=== PATIENT | female | born 1950 | race Hispanic/Latino ===

== ENCOUNTER 2018-07-18 06:27 | Outpatient (CLI) | payer OTHER | END 2018-07-18 06:28 | disposition home or self-care (01) | LOC: C.LAB 06:27 | DX: E78.2 Mixed hyperlipidemia (principal); I10 Essential (primary) hypertension; D51.0 Vitamin B12 deficiency anemia due to intrinsic factor deficiency ==

== ENCOUNTER 2018-08-15 06:35 | Outpatient (CLI) | payer OTHER | END 2018-08-15 06:36 | disposition home or self-care (01) | LOC: C.CARD 06:35 | DX: I10 Essential (primary) hypertension (principal); R06.02 Shortness of breath ==

== ENCOUNTER 2018-09-04 07:08 | Emergency (ER) | payer OTHER ==
[2018-09-04 07:08] VITALS: BMI 22.4
[2018-09-04] MEDS ORDERED: Tramadol 25 mg PO ONE (07:54)
--- NOTE | 2018-09-04 08:18 | C.PDOC ---
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 Patient states that she tripped on a cord and fell injuring her elbow. Patient states that she is not able to fully straighten her elbow. Denies having weakness, numbness, and tingling sensation in rest of the left arm. Time Seen by Provider: 09/04/18 07:37 Chief Complaint (Nursing): Upper Extremity Problem/Injury History Per: Patient History/Exam Limitations: no limitations Onset/Duration Of Symptoms: Mins Current Symptoms Are (Timing): Still Present Severity: Moderate Past Medical History Reviewed: Historical Data, Nursing Documentation, Vital Signs Vital Signs: Last Vital Signs Temp 98.2 F 09/04/18 07:25 Pulse 109 H 09/04/18 07:25 Resp 20 09/04/18 07:25 BP 156/82 H 09/04/18 07:25 Pulse Ox 99 09/04/18 07:25 - Medical History PMH: HTN Surgical History: Tonsillectomy - [facility] Procedures NONEXCIS DEBRID OF WOUND, INFECT, OR BURN (03/05/13) Family History: States: No Known Family Hx - Social History Hx Alcohol Use: Yes Hx Substance Use: No - Immunization History Hx Tetanus Toxoid Vaccination: No Hx Influenza Vaccination: No Hx Pneumococcal Vaccination: No Review Of Systems Musculoskeletal: Positive for: Other (left elbow pain) Neurological: Negative for: Weakness, Numbness Physical Exam - Physical Exam Appears: Non-toxic, No Acute Distress Skin: Normal Color, Warm, Dry Head: Atraumatic, Normacephalic Eye(s): bilateral: Normal Inspection Nose: Normal Oral Mucosa: Moist Neck: Supple Chest: Symmetrical Extremity: No Normal ROM (limited extension in left elbow), Tenderness (minimal tenderness to left elbow), Deformity (deformity noted to left elbow), No Swelling Pulses: Left Brachial: Normal, Left Radial: Normal Neurological/Psych: Oriented x3, Normal Speech, Normal Sensation (LUE) ED Course And Treatment O2 Sat by Pulse Oximetry: 99 (RA) Pulse Ox Interpretation: Normal - Other Rad X-Ray-Elbow X-Ray: Viewed By Me, Read By Radiologist Interpretation: 09/04/2018. PROCEDURE: Radiographs of the left elbow. HISTORY: injury. COMPARISON: No prior. TECHNIQUE: 3 views obtained. FINDINGS: BONES: There is dislocation of the left elbow. There is curvilinear high attenuation material seen adjacent to the distal aspect of the distal humerus which may represent cortical avulsion fracture. Curvilinear density seen projecting over the ulnar articular surface in the lateral view may represent the same cortical avulsion. Consider further evaluation with computed tomography. No other fracture is identified. The radial head appears grossly intact. JOINTS: As above. SOFT TISSUES: Normal. JOINT EFFUSION: None. OT HER FINDINGS: None. IMPRESSION: Complete dislocation of the left elbow with possible cortical avulsion fracture. Recommend further evaluation with computed tomography. X-Ray-Elb. X-Ray: Viewed By Me, Read By Radiologist Interpretation: Date of service: 09/04/2018. PROCEDURE: Radiographs of the left elbow. HISTORY: post reduction. COMPARISON: 09/04/2018 at 8:12 a.m. TECHNIQUE: 3 views obtained. FINDINGS: BONES: Status post close reduction of left elbow dislocation. There is a large displaced radial head fragment along the radial aspect of the distal radius. There is initial additional small cortical fragment seen ventral to the radial head in the lateral projection. There is no additional fracture identified. JOINTS: Normal. No osteoarthritis. SOFT TISSUES: Normal. JOINT EFFUSION: There is evidence of joint effusion/hemarthrosis. OTHER FINDINGS: None. IMPRESSION: Comminuted displaced radial head fracture. Status post successful close reduction of elbow dislocation. X-Ray-Wrist X-Ray: Viewed By Me, Read By Radiologist Interpretation: Date of service: 09/04/2018. PROCEDURE: Left Wrist Radiographs. . HISTORY: injury. COMPARISON: None. TECHNIQUE: 4 views obtained. FINDINGS: BONES: Deformity of distal radius indicative of fracture. This is not definitely an acute fracture and may represent deformity from old healed fracture. Please correlate clinically. There loss of the normal volar angulation of the distal radial articular surface. The ulnar styloid process appears intact. JOINTS: Radiocarpal and intercarpal articulations appear intact. SOFT TISSUES: Possible pronator fat pad sign indicative of hemarthrosis. OTHER FINDINGS: None. IMPRESSION: Distal radial metaphyseal fracture of indeterminate chronicity. Please correlate. - CT Scan/US CT-Upper Ext. Other Rad Studies (CT/US): Read By Radiologist, Radiology Report Reviewed CT/US Interpretation: Date of service: 09/04/2018. PROCEDURE: CT left upper extremity. HISTORY: L elbow fx. COMPARISON: Not available. TECHNIQUE: 2.5 mm contiguous axial sections were acquired through the left elbow. Sagittal and coronal images were reformatted from the axial scan. Total exam DLP: 172.32 mGy-cm. This CT exam was performed using 1 or more of the following dose reduction techniques: Automated exposure control, adjustment of the mA and/or kV according to patient size, and/or use of iterative reconstruction technique. FINDINGS: There is a comminuted displaced fracture of the radial head. There is a comminuted mildly displaced fracture of the coronoid process of the ulna. There is a minimally displaced fracture of the dorsal aspect of the lateral humeral condyle. There is no additional fracture identified. There is no lytic or blastic osseous lesion. There is only a small joint effusion/hemarthrosis. IMPRESSION: Comminuted displaced radial head fracture. Comminuted mildly displaced coronoid process fracture. Minimally displaced fracture of the dorsal aspect lateral humeral condyle. Orthopedic Time Performed: 12:45 Time Out: Side verified, Site verified, Patient ID confirmed Procedure: Joint reduction Consent obtained: Verbal Performed by: Attending Physician Diagnosis: Dislocation Type: Closed Location: Left Other:: Elbow joint Procedural Sedation: Propofol Post-reduction Radiograph: Reduced Patient tolerated procedure: Well Medical Decision Making Medical Decision Making: Patient given tramadol PO for pain. Imaging done, posterior L elbow dislocation noted. Patient requesting that we call Dr. Elin Villarreal, her orthopedist. He is requesting that we send pre and post reduction images to him. Agrees with plan to reduce elbow here in the ED, and patient can follow up with him as an outpatient. 0950- Patient states that her last PO intake was at 0630 and that she would prefer to wait until 1230 (6hrs NPO) for conscious sedation. Meanwhile, patient was given 2mg morphine ivp for continued pain. At 1245, conscious sedation and reduction procedures performed, please refer to procedure notes for more details. Post reduction imaging done, results reviewed and sent to Dr. Villarreal as well. He would like CT L elbow and application of splint. CT L elbow done. Posterior L elbow fiberglass splint applied by tech. Patient neurovascularly intact post procedure. Spoke to Dr. Villarreal regarding CT results. He is aware of the multiple elbow fractures. He will see the patient in his office. Patient discharged with Rx for tramadol for pain. AAOx3 after conscious sedation. Disposition - Disposition Disposition: HOME/ ROUTINE Disposition Time: 17:30 Condition: STABLE Additional Instructions: OSIEL DUNCAN, thank you for letting us take care of you today. Your provider was Zoey Murphy MD and you were treated for FALL/LT ELBOW PAIN. The emergency medical care you received today was directed at your acute symptoms. If you were prescribed any medication, please fill it and take as directed. It may take several days for your symptoms to resolve. Return to the Emergency Department if your symptoms worsen, do not improve, or if you have any other problems. Please contact your doctor or call one of the physicians/clinics you have been referred to that are listed on the Patient Visit Information form that is included in your discharge packet. Bring any paperwork you were given at discharge with you along with any medications you are taking to your follow up visit. Our treatment cannot replace ongoing medical care by a primary care provider outside of the emergency department. Thank you for allowing the [facility] team to be part of your care today. If you had an X-Ray or CT scan: A Radiologist will review the ED reading if any change in treatment is needed we will contact you. If you had a blood, urine, or wound culture: It will take several days for the results, if any change in treatment is needed we will contact you. If you had an STI test: It will take 48 hours for the results. Please call after 1 week if you have not heard back. Prescriptions: traMADol [Ultram] 50 mg PO BID PRN #8 tab PRN Reason: Pain, Severe (8-10) Instructions: Elbow Fracture (DC) Forms: [employer] (Kiswahili) - Clinical Impression Clinical Impression: Dislocation of left elbow, Elbow fracture, left - Scribe Statement The provider has reviewed the documentation as recorded by the Asimibe Jennifer Olivarez Provider Attestation: All medical record entries made by the Asimibsalomon were at my direction and personally dictated by me. I have reviewed the chart and agree that the record accurately reflects my personal performance of the history, physical exam, medical decision making, and the department course for this patient. I have also personally directed, reviewed, and agree with the discharge instructions and disposition. ED Procedural Sedation - Pre Anesthesia Assessment Chief Complaint: Upper Extremity Problem/Injury Last Known Meal: 0630 Past Medical History: Medications Reviewed, Allergies Reviewed, Record Review Previous Surgies: Reviewed - Physical Exam/Review of Systems Vital Signs Reviewed: Yes Cardiovascular: Regular Rate and Rhythm Respiratory/Chest: Clear to Auscultation Neurological: GCS=15 Abdomen: Normal Bowel Sounds. denies: Tenderness, Distention Mental Status: Alert and Oriented X 3 - Pre-Procedure Airway Assessment History of difficult intubation or surgical airway (i.e trach):: No Inability to extend neck:: No Mouth opening less than two finger breadth:: No Diagnosis of sleep apnea:: No Less than three finger breadth to hyoid bone:: No ASA Criteria: 1 - Healthy, normal. 2 - Mild systemic disease (No functional limitations, mildline obesity, DM withot complications, Hypertention). 3 - Severe systemic disease (Some functional limitation, stable angina, morbid obesity, controlled COPD/Asthma/CHF). 4 - Sever systemic disease constant threat to life (Unstable angina, active symptoms of COPD/Asthma, CHF/Hypertension. 5 - Moribund ASA Clarification: ASA I Mallampati (airway): Class II - Intra-Procedure (Medications) Medications Given: Discontinued Medications Morphine Sulfate (Morphine) 2 mg IVP STAT STA Stop: 09/04/18 11:20 Last Admin: 09/04/18 11:51 Dose: 2 mg KATHI Pain Assessment Document 09/04/18 11:51 RD (Rec: 09/04/18 11:51 RD [id number]) Pain Reassessment Is this a pain reassessment? No Presence of Pain Presence of Pain Yes IVP Administration Document 09/04/18 11:51 RD (Rec: 09/04/18 11:51 RD [id number]) Charges for Administration # of IVP Administrations 1 Tramadol HCl (Ultram) 25 mg PO ONCE ONE Stop: 09/04/18 07:55 Last Admin: 09/04/18 08:10 Dose: 25 mg MAR Pain Assessment Document 09/04/18 08:10 RD (Rec: 09/04/18 08:35 RD [id number]) Pain Reassessment Is this a pain reassessment? No Presence of Pain Presence of Pain Yes Conscious sedation: Propofol 50mg, 20mg, 20mg. No reversal agents needed. Physician Pushed Medication: Yes - Post-Procedure Post Procedure Note: Patient monitored and eventually returned to baseline, AAOx3. Vitals stable throughout procedural sedation.
--- NOTE | 2018-09-04 09:22 | RAD ---
09/04/2018 PROCEDURE: Radiographs of the left elbow. HISTORY: injury COMPARISON: No prior. TECHNIQUE: 3 views obtained. FINDINGS: BONES: There is dislocation of the left elbow. There is curvilinear high attenuation material seen adjacent to the distal aspect of the distal humerus which may represent cortical avulsion fracture. Curvilinear density seen projecting over the ulnar articular surface in the lateral view may represent the same cortical avulsion. Consider further evaluation with computed tomography. No other fracture is identified. The radial head appears grossly intact. JOINTS: As above SOFT TISSUES: Normal. JOINT EFFUSION: None. OTHER FINDINGS: None IMPRESSION: Complete dislocation of the left elbow with possible cortical avulsion fracture. Recommend further evaluation with computed tomography.
[2018-09-04] MEDS ORDERED: Propofol 10 mg/ml Inj (20 ML) ONE (09:23)
--- NOTE | 2018-09-04 14:04 | RAD ---
Date of service: 09/04/2018 PROCEDURE: Radiographs of the left elbow. HISTORY: post reduction COMPARISON: 09/04/2018 at 8:12 a.m. TECHNIQUE: 3 views obtained. FINDINGS: BONES: Status post close reduction of left elbow dislocation. There is a large displaced radial head fragment along the radial aspect of the distal radius. There is initial additional small cortical fragment seen ventral to the radial head in the lateral projection. There is no additional fracture identified. JOINTS: Normal. No osteoarthritis. SOFT TISSUES: Normal. JOINT EFFUSION: There is evidence of joint effusion/hemarthrosis. OTHER FINDINGS: None IMPRESSION: Comminuted displaced radial head fracture. Status post successful close reduction of elbow dislocation.
--- NOTE | 2018-09-04 14:07 | RAD ---
Date of service: 09/04/2018 PROCEDURE: Left Wrist Radiographs. HISTORY: injury COMPARISON: None. TECHNIQUE: 4 views obtained. FINDINGS: BONES: Deformity of distal radius indicative of fracture. This is not definitely an acute fracture and may represent deformity from old healed fracture. Please correlate clinically. There loss of the normal volar angulation of the distal radial articular surface. The ulnar styloid process appears intact. JOINTS: Radiocarpal and intercarpal articulations appear intact. SOFT TISSUES: Possible pronator fat pad sign indicative of hemarthrosis. OTHER FINDINGS: None. IMPRESSION: Distal radial metaphyseal fracture of indeterminate chronicity. Please correlate.
--- NOTE | 2018-09-04 15:51 | CT ---
Date of service: 09/04/2018 PROCEDURE: CT left upper extremity HISTORY: L elbow fx COMPARISON: Not available TECHNIQUE: 2.5 mm contiguous axial sections were acquired through the left elbow. Sagittal and coronal images were reformatted from the axial scan. Total exam DLP: 172.32 mGy-cm This CT exam was performed using 1 or more of the following dose reduction techniques: Automated exposure control, adjustment of the mA and/or kV according to patient size, and/or use of iterative reconstruction technique. FINDINGS: There is a comminuted displaced fracture of the radial head. There is a comminuted mildly displaced fracture of the coronoid process of the ulna. There is a minimally displaced fracture of the dorsal aspect of the lateral humeral condyle. There is no additional fracture identified. There is no lytic or blastic osseous lesion. There is only a small joint effusion/hemarthrosis. IMPRESSION: Comminuted displaced radial head fracture. Comminuted mildly displaced coronoid process fracture. Minimally displaced fracture of the dorsal aspect lateral humeral condyle.
[2018-09-04 17:18] VITALS: BP 162/88; PULSE 82; RESP 18; TEMP 98
[2018-09-04 18:12] VITALS: O2SAT 99
== END 2018-09-04 17:30 | disposition home or self-care (01) ==
LOC: C.ER 07:08
DX: S53.105A Unspecified dislocation of left ulnohumeral joint, initial encounter (principal); S52.122A Displaced fracture of head of left radius, initial encounter for closed fracture; W01.0XXA Fall on same level from slipping, tripping and stumbling without subsequent striking against object, initial encounter; Y92.239 Unspecified place in hospital as the place of occurrence of the external cause; Y99.0 Civilian activity done for income or pay
CPT/HCPCS: 24600; 73080; 73100; 73200; 94770; 96374; 99285; J2270